=== PATIENT | female | born 1940 | race Caucasian/White ===

== ENCOUNTER 2022-01-16 10:15 | Inpatient (IN) | payer OTHER ==
[~2022-01-16] VITALS: Ht 160 cm; Wt 64.4 kg
[~2022-01-16 10:15] MED LIST: CIPRO750 MG PO; CLONAZEPAM1 MG PO; COLACE100 MG PO; METHYLPRED4 MG/DOSE- PO; NEURONTIN800 MG PO; PERCOCET 5/3251 TAB PO
[2022-01-16] MEDS ORDERED: LOSARTAN PO (14:35)
[2022-01-21] MEDS ORDERED: COLACE100 MG PO (13:03)
[2022-01-21] MEDS ORDERED: PERCOCET 5-3251 EACH PO (13:03)
[2022-01-21] MEDS ORDERED: NEURONTIN800 MG PO (13:03)
[2022-01-21] MEDS ORDERED: MEDROLPACK PO (13:03)
[2022-01-21] MEDS ORDERED: AMOX-CLAV 875-1 EACH PO (13:03)
== END 2022-01-22 16:36 | disposition home or self-care (01) | DRG 455 ==
LOC: O/R 01-21 06:18 → PED 01-21 06:18 → SURG 01-21 10:15 → PED 01-21 17:23 → O/R 01-21 17:36 → PED 01-21 19:14
PROVIDERS: ADMIT Orthopaedic Surgery Orthopaedic Surgery of the Spine; ATTEND Orthopaedic Surgery Orthopaedic Surgery of the Spine
PROC: 0SG0071 Fusion of Lumbar Vertebral Joint with Autologous Tissue Substitute, Posterior Approach, Posterior Column, Open Approach (ICD-10-PCS; 2022-01-21)
PROC: 0ST20ZZ Resection of Lumbar Vertebral Disc, Open Approach (ICD-10-PCS; 2022-01-21)
PROC: 0QB30ZZ Excision of Left Pelvic Bone, Open Approach (ICD-10-PCS; 2022-01-21)
PROC: 07DR0ZZ Extraction of Iliac Bone Marrow, Open Approach (ICD-10-PCS; 2022-01-21)
PROC: 0SG00A0 Fusion of Lumbar Vertebral Joint with Interbody Fusion Device, Anterior Approach, Anterior Column, Open Approach (ICD-10-PCS; principal; 2022-01-21 10:45)
DX: M48.062 Spinal stenosis, lumbar region with neurogenic claudication (principal); M41.86 Other forms of scoliosis, lumbar region; M51.36 Other intervertebral disc degeneration, lumbar region; I10 Essential (primary) hypertension

== ENCOUNTER 2025-02-24 06:20 | Day surgery (SDC) | payer OTHER ==
[2025-02-17 14:23] LABS: COVID-19 AG NEGATIVE (NEGATIVE)
[~2025-02-24] VITALS: Ht 152.4 cm; Wt 62.6 kg
[~2025-02-24 06:20] MED LIST changes: +AMOX-CLAV 875-1 EACH PO; +LOSARTAN PO; +MEDROLPACK PO; +PERCOCET 5-3251 EACH PO; +ZESTRIL5 MG PO
[2025-02-24] MEDS ORDERED: METHYLPREDNISOLONE ACETATE 80 MG/ML VIAL ONE (07:00)
[2025-02-24] MEDS ORDERED: METHYLPREDNISOLONE SOD SUCC 125 MG VIAL ONE (07:00)
[2025-02-24] MEDS ORDERED: CEFAZOLIN SODIUM 1,000 MG VIAL ONE ×2 (07:01→07:06)
[2025-02-24] MEDS ORDERED: VANCOMYCIN HCL 1,000 MG VIAL ONE ×2 (07:01→07:06)
[2025-02-24] MEDS ORDERED: ISOPROPYL ALCOHOL 30 ML OUNCE TOP ONE ×2 (07:01→08:15)
[2025-02-24] MEDS ORDERED: HEMOSTATIC MATRIX WITH THROMBIN KIT TOP ONE ×2 (07:02→08:00)
[2025-02-24] MEDS ORDERED: PERCOCET 5-3251 EACH PO (07:11)
[2025-02-24] MEDS ORDERED: ZOFRAN8 MG PO (07:12)
[2025-02-24] MEDS ORDERED: AMOX-CLAV 875-1 EACH PO (07:12)
[2025-02-24] MEDS ORDERED: COLACE100 MG PO (07:12)
[2025-02-24] MEDS ORDERED: MEDROLPACK PO (07:12)
[2025-02-24] MEDS ORDERED: GABAPENTIN100 M2 PO (07:13)
[2025-02-24] MEDS ORDERED: NEURONTIN600 M1 PO (07:14)
[2025-02-24] MEDS ORDERED: VANCOMYCIN HCL 1,000 MG VIAL SPEPROC ONE (08:00)
[2025-02-24] MEDS ORDERED: VANCOMYCIN HCL 1,000 MG VIAL IR ONE (08:00)
[2025-02-24] MEDS ORDERED: VANCOMYCIN HCL 1,000 MG VIAL IV ONE (08:00)
[2025-02-24] MEDS ORDERED: METHYLPREDNISOLONE ACETATE 80 MG/ML VIAL IM ONE (08:00)
[2025-02-24] MEDS ORDERED: CEFAZOLIN SODIUM 1,000 MG VIAL IV ONE (08:00)
[2025-02-24] MEDS ORDERED: METHYLPREDNISOLONE SOD SUCC 125 MG VIAL IV ONE (08:15)
[2025-02-24] MEDS ORDERED: SUGAMMADEX SODIUM 200 MG/2 ML VIAL IV ONE (08:30)
== END 2025-02-24 12:20 | disposition home or self-care (01) ==
LOC: CIR.AMB 06:20 → SURH 07:00 → CIR.AMB 12:20 → O/R 12:20 → SURH 12:45 → EDSTATUS 12:45
PROVIDERS: ATTEND Orthopaedic Surgery Orthopaedic Surgery of the Spine
DX: M46.1 Sacroiliitis, not elsewhere classified (principal)
CPT/HCPCS: 27279; C1776